=== PATIENT | male | born 1965 | race Native Hawaiian/Other Pacific Islander ===

== ENCOUNTER 2019-03-11 08:31 | Outpatient (CLI) | payer BC | END 2019-03-11 19:48 | disposition home or self-care (01) | LOC: MRI 08:31 | DX: R51 Headache (principal) | CPT/HCPCS: 36415; 82565; 84520; A9576 ==

== ENCOUNTER 2022-03-25 09:48 | Outpatient (CLI) | payer BC | END 2022-03-25 20:41 | disposition home or self-care (01) | LOC: RAD 09:48 | PROVIDERS: ATTEND Internal Medicine | DX: R05.9 Cough, unspecified (principal) ==